=== PATIENT | male | born 1990 | race African-American/Black ===

== ENCOUNTER 2018-01-03 20:10 | Emergency (ER) | payer MEDICAID ==
[~2018-01-03] VITALS: Ht 172.7 cm; Wt 89.0 kg
[2018-01-03] MEDS ORDERED: LIDOCAINE HCL 1% 20ML VIAL (Pyxis) INJ MC ONE (21:00)
[2018-01-03] MEDS ORDERED: BACITRACIN ZINC OINT UDPKT TOP ONE (21:00)
[2018-01-03 22:10] VITALS: BP 131/84
== END 2018-01-03 22:20 | disposition home or self-care (01) ==
LOC: ER 20:10
DX: S01.111A Laceration without foreign body of right eyelid and periocular area, initial encounter (principal); J45.909 Unspecified asthma, uncomplicated; W51.XXXA Accidental striking against or bumped into by another person, initial encounter; Y93.67 Activity, basketball; Y92.89 Other specified places as the place of occurrence of the external cause; Y99.8 Other external cause status
CPT/HCPCS: 12011; 99283; J3490; X7700; Z7610

== ENCOUNTER 2018-01-12 08:42 | Emergency (ER) | payer MEDICAID ==
[~2018-01-12] VITALS: Ht 172.7 cm; Wt 87.0 kg
[2018-01-12 11:16] VITALS: BP 147/84
== END 2018-01-12 11:38 | disposition home or self-care (01) ==
LOC: ER 11:26
DX: Z48.02 Encounter for removal of sutures (principal); J45.909 Unspecified asthma, uncomplicated
CPT/HCPCS: 99281

== ENCOUNTER 2018-03-29 09:29 | Emergency (ER) | payer MEDICAID ==
[~2018-03-29] VITALS: Ht 172.7 cm; Wt 88.0 kg
[2018-03-29] MEDS ORDERED: FLUORESCEIN SODIUM 1MG/STRIP LEFTEYE NR (10:15)
[2018-03-29 11:22] VITALS: BP 138/78
== END 2018-03-29 11:24 | disposition home or self-care (01) ==
LOC: ER 09:37
DX: H10.9 Unspecified conjunctivitis (principal); H52.202 Unspecified astigmatism, left eye; J45.909 Unspecified asthma, uncomplicated
CPT/HCPCS: 99283

== ENCOUNTER 2019-05-17 09:09 | Emergency (ER) | payer MEDICAID ==
[~2019-05-17] VITALS: Ht 172.7 cm; Wt 91.0 kg
[2019-05-17] MEDS ORDERED: IBUPROFEN 600MG TABLET PO ONE (10:15)
[2019-05-17 10:23] VITALS: BP 141/95
== END 2019-05-17 11:56 | disposition home or self-care (01) ==
LOC: ER 09:18
DX: J02.9 Acute pharyngitis, unspecified (principal); J45.909 Unspecified asthma, uncomplicated; F12.10 Cannabis abuse, uncomplicated
CPT/HCPCS: 87430; 99283